=== PATIENT | female | born 1985 | race Caucasian/White ===

== ENCOUNTER 2017-10-11 23:46 | Emergency (ER) | payer SELFPAY ==
[~2017-10-11] VITALS: Ht 149.9 cm; Wt 54.9 kg
[2017-10-11 23:50] VITALS: Ht 149.9 cm; Wt 54.9 kg
[2017-10-12 00:32] VITALS: BP 121/84
== END 2017-10-12 00:32 | disposition home or self-care (01) ==
LOC: ED 23:46
DX: S91.212A Laceration without foreign body of left great toe with damage to nail, initial encounter (principal); W26.0XXA Contact with knife, initial encounter; Y93.89 Activity, other specified; Y92.89 Other specified places as the place of occurrence of the external cause; Y99.8 Other external cause status
CPT/HCPCS: 90715